=== PATIENT | female | born 1990 | race Two or more races ===

== ENCOUNTER 2025-03-01 10:01 | Emergency (ER) | payer OTHER ==
[~2025-03-01] VITALS: Ht 160 cm; Wt 84.4 kg
[2025-03-01] MEDS ORDERED: SYNTHROID200 MCG PO (10:42)
[2025-03-01] MEDS ORDERED: SYNTHROID75 MCG PO (10:42)
[2025-03-01 12:28] LABS: BASO % 0.5 % (0.1-1.2); EOS # 0.07 (0.04-0.54); EOS % 1.1 % (0.7-7.0); LYMPH # 1.80 (1.18-3.74); LYMPH % 27.3 % (19.3-53.1); MEAN PLATELET VOLUME 11.00 fl (9.4-12.4); MONO # 0.50 (0.24-0.82); MONO % 7.6 % (4.7-12.5); NEUT # 4.17 (1.56-6.13); NEUT % 63.2 % (34.0-71.1); RED CELL DISTRIBUTION WIDTH 13.2 % (11.6-14.4)
[2025-03-01 12:52] LABS: URINE APPEARANCE Clear; URINE BILIRRUBIN Negative (NEGATIVE); URINE BLOOD Negative; URINE COLOR Yellow; URINE GLUCOSE Negative (NEGATIVE); URINE KETONE Trace (NEGATIVE); URINE LEUKOCYTE Trace; URINE NITRATE Negative; URINE PROTEIN Trace (NEGATIVE); URINE UROBILINOGEN 1.0 E.U./dl
[2025-03-01 12:56] LABS: URINE BACTERIA 5127.5 uL (0.0-1933); URINE EPITHELIAL CELLS 24.9 uL (0.0-38.8); URINE WBC 31.9 uL (0.0-23.2)
[2025-03-01 13:00] LABS: URINE CAST 0.14 uL (0.0-1.40); URINE RBC 1.9 uL (0.0-20.8)
[2025-03-01] MEDS ORDERED: ACETAMINOPHEN 500 MG GEL..CAP PO ONE ×2 (16:30→16:39)
== END 2025-03-01 18:42 | disposition home or self-care (01) ==
LOC: ER 10:01
PROVIDERS: Emergency Medicine
DX: Z34.90 Encounter for supervision of normal pregnancy, unspecified, unspecified trimester (principal); Z3A.08 8 weeks gestation of pregnancy; S29.8XXA Other specified injuries of thorax, initial encounter; V49.88XA Car occupant (driver) (passenger) injured in other specified transport accidents, initial encounter; Y93.89 Activity, other specified; Y92.89 Other specified places as the place of occurrence of the external cause; Y99.8 Other external cause status

== ENCOUNTER 2025-05-18 18:00 | Emergency (ER) | payer OTHER ==
[~2025-05-18] VITALS: Ht 160 cm; Wt 83.0 kg
[~2025-05-18 18:00] MED LIST: SYNTHROID200 MCG PO; SYNTHROID75 MCG PO
[2025-05-18] MEDS ORDERED: RINGERS SOLUTION,LACTATED 1,000 ML IV ONE (19:00)
[2025-05-18] MEDS ORDERED: ACETAMINOPHEN 325 MG TABLET PO ONE (19:00)
[2025-05-18] MEDS ORDERED: FAMOTIDINE/PF 20 MG/2 ML VIAL IV ONE (19:00)
[2025-05-18] MEDS ORDERED: ACETAMINOPHEN 500 MG GEL..CAP PO ONE (19:51)
[2025-05-18] MEDS ORDERED: FAMOTIDINE/PF 20 MG/2 ML VIAL ONE (19:51)
[2025-05-18 20:28] LABS: BASO % 0.2 % (0.1-1.2); EOS # 0.17 (0.04-0.54); EOS % 1.8 % (0.7-7.0); LYMPH # 1.97 (1.18-3.74); LYMPH % 20.6 % (19.3-53.1); MEAN PLATELET VOLUME 10.20 fl (9.4-12.4); MONO # 0.70 (0.24-0.82); MONO % 7.3 % (4.7-12.5); NEUT # 6.66 (1.56-6.13); NEUT % 69.6 % (34.0-71.1); RED CELL DISTRIBUTION WIDTH 13.7 % (11.6-14.4)
[2025-05-18 21:21] LABS: ALT/SGPT 25.0 U/L (12-78); AST/SGOT 13.0 U/L (15-37); BILIRUBIN TOTAL 0.37 mg/dL (0.3-1.2); BUN CREA RATIO 22.0 (7.0-25.0); CREATININE SERUM 0.51 mg/dL (0.55-1.02); GFR 138.88; GLOBULINA 3.3 G/DL (2.4-3.5); GLUCOSE FASTING 87.0 mg/dL (65-100); OSMOLALITY SERUM 282.0 MOSM/KG (275-295)
[2025-05-18 21:55] LABS: COVID-19 AG NEGATIVE (NEGATIVE)
[2025-05-19 00:13] LABS: URINE APPEARANCE Clear; URINE BILIRRUBIN Negative (NEGATIVE); URINE BLOOD Negative; URINE COLOR Yellow; URINE GLUCOSE Negative (NEGATIVE); URINE KETONE Negative (NEGATIVE); URINE LEUKOCYTE Trace; URINE NITRATE Positive; URINE PROTEIN Trace (NEGATIVE); URINE UROBILINOGEN 1.0 E.U./dl
[2025-05-19 00:17] LABS: URINE EPITHELIAL CELLS 27.6 uL (0.0-38.8); URINE WBC 53.6 uL (0.0-23.2)
[2025-05-19 00:30] LABS: URINE CAST 0.14 uL (0.0-1.40); URINE RBC 1.3 uL (0.0-20.8)
[2025-05-19] MEDS ORDERED: MACROBID 100 M100 MG PO (01:33)
== END 2025-05-19 01:56 | disposition home or self-care (01) ==
LOC: ER 18:00
PROVIDERS: General Practice
DX: O23.42 Unspecified infection of urinary tract in pregnancy, second trimester (principal); E03.8 Other specified hypothyroidism; Z3A.19 19 weeks gestation of pregnancy; R10.21 Pelvic and perineal pain right side; N39.0 Urinary tract infection, site not specified

== ENCOUNTER 2025-06-21 14:38 | Outpatient (CLI) | payer OTHER ==
[~2025-06-21 14:38] MED LIST changes: +MACROBID 100 M100 MG PO
== END 2025-06-21 14:40 | disposition home or self-care (01) ==
LOC: PRENATAL 14:38
PROVIDERS: ATTEND Obstetrics & Gynecology Maternal & Fetal Medicine
DX: O44.02 Complete placenta previa NOS or without hemorrhage, second trimester (principal); O99.282 Endocrine, nutritional and metabolic diseases complicating pregnancy, second trimester; O34.212 Maternal care for vertical scar from previous cesarean delivery; Z3A.23 23 weeks gestation of pregnancy